=== PATIENT | male | born 1960 | race Caucasian/White ===

== ENCOUNTER 2020-10-05 08:55 | Outpatient (RCR) | payer BC ==
[~2020-10-05] VITALS: Ht 182 cm; Wt 107.0 kg
[2020-10-05] MEDS ORDERED: RIVA20TA PO (09:04)
[2020-10-05] MEDS ORDERED: DILT180T9 PO (09:04)
[2020-10-05] MEDS ORDERED: NEBI5TAB8 PO (09:04)
[2020-10-05 09:08] VITALS: BP 137/85
--- NOTE | 2020-10-05 09:49 | Diagnostic Imaging Report ---
INDICATION: Preop Two views of the chest show normal heart size and vascularity. Wireless heart monitor is present. The lungs are clear. There is no effusion or pneumothorax. There is no bony abnormality. IMPRESSION: No acute abnormality is seen. Dictated by: Dictated on workstation # [id number]
[2020-10-05 09:57] LABS: BASOPHILS % (AUTO) 0 % (0-10); EOSINOPHILS % (AUTO) 0 % (0-10); HEMATOCRIT 44 % (40-54); HEMOGLOBIN 15.1 g/dL (13.3-17.7); LYMPHOCYTES # (AUTO) 1.1 10^3/uL (1.0-4.0); LYMPHOCYTES % (AUTO) 16 % (12-44); MEAN CORPUSCULAR HEMOGLOBIN 30 pg (25-34); MEAN CORPUSCULAR HGB CONC 34 g/dL (32-36); MEAN CORPUSCULAR VOLUME 87 fL (80-99); MEAN PLATELET VOLUME 10.7 fL (9.0-12.2); MONOCYTES # (AUTO) 0.5 10^3/uL (0.0-1.0); MONOCYTES % (AUTO) 7 % (0-12); NEUTROPHILS # (AUTO) 5.4 10^3/uL (1.8-7.8); NEUTROPHILS % (AUTO) 77 % (42-75); PLATELET COUNT 269 10^3/uL (130-400)
[2020-10-05 10:10] LABS: BUN/CREATININE RATIO 22; CALCIUM 9.2 MG/DL (8.5-10.1); CARBON DIOXIDE 23 MMOL/L (21-32); CHLORIDE 105 MMOL/L (98-107); CREATININE SERUM 0.79 MG/DL (0.60-1.30); GFR ESTIMATED > 60; GLUCOSE 111 MG/DL (70-105); POTASSIUM 3.8 MMOL/L (3.6-5.0); SODIUM 139 MMOL/L (135-145)
== END 2020-10-05 10:17 | disposition home or self-care (01) ==
LOC: PREOP 08:55
PROVIDERS: ATTEND Otolaryngology Otolaryngology/Facial Plastic Surgery
DX: Z01.812 Encounter for preprocedural laboratory examination (principal); J32.9 Chronic sinusitis, unspecified; J34.2 Deviated nasal septum; J34.3 Hypertrophy of nasal turbinates
CPT/HCPCS: 36415; 71046; 80048; 85025; 87081

== ENCOUNTER 2020-10-07 06:12 | Day surgery (SDC) | payer BC ==
[2020-10-07] VITALS (10 sets, daily range): BP systolic 132–169; BP diastolic 84–100
[~2020-10-07] VITALS: Ht 182 cm; Wt 107.0 kg
[~2020-10-07 06:12] MED LIST: DILT180T9 PO; NEBI5TAB8 PO; RIVA20TA PO
[2020-10-07] MEDS ORDERED: AMPICILLIN/SULBACTAM INJECTION 1.5 GM in NS (IVPB) 100 ML IV ONE (06:15)
[2020-10-07] MEDS ORDERED: HYDROCORTISONE 100 MG/2 ML (Solu-CORTEF) VIAL IV ONE (06:15)
[2020-10-07] MEDS: LACTATED RINGERS 1,000 ML IV PRN ×2 (06:38→08:12)
[2020-10-07] MEDS ORDERED: PHENYLEPHRINE 0.5% NASAL SPR (NEO-SYNEPHRINE) REG ONE (06:52)
[2020-10-07] MEDS ORDERED: COCAINE HCL 4% 2 ML SYR ONE (06:52)
[2020-10-07] MEDS ORDERED: fentaNYL INJECTION 100 MCG/2 ML AMP ONE (06:52)
[2020-10-07] MEDS ORDERED: BSS 15 ML ONE (06:52)
[2020-10-07] MEDS ORDERED: MIDAZOLAM 2 MG/2 ML (VERSED) VIAL ONE (06:52)
[2020-10-07] MEDS ORDERED: LIDOCAINE/EPI 1%-1:100,000 (XYLOCAINE) 20ML ONE (06:53)
--- NOTE | 2020-10-07 07:07 | Progress Note-Pre Operative ---
Pre-Operative Progress Note H&P Reviewed The H&P was reviewed, patient examined and no changes noted. Date Seen by Provider: Oct 07, 2020 Time Seen by Provider: 06:30 Date H&P Reviewed: Oct 07, 2020 Time H&P Reviewed: 06:30 Pre-Operative Diagnosis: Bilat ChronicSinusitis, Deviated Nasal Septum, Bilat Hyper of Inf Turbs CATRACHITA MCARTHUR MD Oct 07, 2020 07:07
[2020-10-07] MEDS ORDERED: LIDOCAINE PF 2% 5 ML (XYLOCAINE) VIAL ONE (08:11)
[2020-10-07] MEDS ORDERED: ROCURONIUM 10 MG/ML 5 ML SYRINGE IV ONE (08:11)
[2020-10-07] MEDS ORDERED: GLYCOPYRROLATE 0.2 MG/ML (ROBINUL) 2 ML VIAL ONE (08:11)
[2020-10-07] MEDS ORDERED: ONDANSETRON 4 MG/2 ML (SDV) Z0FRAN ONE (08:11)
[2020-10-07] MEDS ORDERED: PROPOFOL IV ONE (08:11)
[2020-10-07] MEDS ORDERED: NEOSTIGMINE 3 MG/3 ML VIAL ONE (08:11)
[2020-10-07] MEDS ORDERED: proPOfol 200 MG/20 ML (DIPRIVAN) VIAL IV ONE ×2 (08:11→09:07)
[2020-10-07] MEDS ORDERED: PROPOFOL INJECTION 50 ML IV ONE (08:19)
[2020-10-07] MEDS ORDERED: HYDROmorphone 2 MG/ML VIAL (DILAUDID) ONE (08:22)
--- NOTE | 2020-10-07 08:52 | Progress Note-Post Operative ---
Post-Operative Progess Note Surgeon (s)/Registered Respiratory Technician (s) Surgeon CATRACHITA MCARTHUR MD Registered Respiratory Technician n/a Pre-Operative Diagnosis Bilat ChronicSinusitis, Deviated Nasal Septum, Bilat Hyper of Inf Turbs Post-Operative Diagnosis same Post-Op Procedure Note Date of Procedure: Oct 07, 2020 Name of Procedure Performed: Bilat ESs, NAsal Septoplasty, Bilat Red of Inf Turbs Description & Findings Description and Findings: n/a Anesthesia Type get Estimated Blood Loss minimal Packing none. Specimen(s) collected/removed bilat sinus disease,septum CATRACHITA MCARTHUR MD Oct 07, 2020 08:52
[2020-10-07] MEDS ORDERED: HYDROcodone/APAP 5 MG/325 MG (LORTAB) TAB PO PRN (09:00)
[2020-10-07] MEDS ORDERED: predniSONE 20 MG TAB PO ONE (09:00)
[2020-10-07] MEDS ORDERED: PROMETHAZINE INJ 25 MG/ML (PHENERGAN) AMP IVP PRN (09:00)
[2020-10-07] MEDS ORDERED: ACETAMINOPHEN 325 MG TABLET PO PRN (09:00)
[2020-10-07] MEDS ORDERED: D5 1/2 NS W/KCL 20 MEQ/L 1,000 ML IV SCH (09:00)
[2020-10-07] MEDS ORDERED: HYDROmorphone 2 MG/ML VIAL (DILAUDID) IV ONE (09:15)
[2020-10-07] MEDS ORDERED: ONDANSETRON 4 MG/2 ML (SDV) Z0FRAN IVP PRN (09:15)
[2020-10-07] MEDS ORDERED: morphine INJ 10 MG/ML 1ML (SYR OR VIAL) IVP ONE (09:15)
[2020-10-07] MEDS ORDERED: AMOX-355 PO (10:03)
[2020-10-07] MEDS ORDERED: PRD20T PO (10:03)
[2020-10-07] MEDS ORDERED: ACHD5005 PO (10:03)
--- NOTE | 2020-10-07 10:39 | Anesthesia-General Post-Op ---
General Patient Condition Mental Status/LOC: Same as Preop Cardiovascular: Satisfactory Nausea/Vomiting: Absent Respiratory: Satisfactory Pain: Controlled Complications: Absent Post Op Complications Complications None Follow Up Care/Instructions Patient Instructions None needed. Anesthesia/Patient Condition Patient Condition Patient is doing well, no complaints, stable vital signs, no apparent adverse anesthesia problems. CONNIE VERA DO Oct 07, 2020 10:39
== END 2020-10-07 11:00 | disposition home or self-care (01) ==
LOC: SDC 06:12
PROVIDERS: ATTEND Otolaryngology Otolaryngology/Facial Plastic Surgery
DX: J32.9 Chronic sinusitis, unspecified (principal); J34.2 Deviated nasal septum; J34.3 Hypertrophy of nasal turbinates; R09.81 Nasal congestion; I48.91 Unspecified atrial fibrillation; G47.33 Obstructive sleep apnea (adult) (pediatric); Z79.899 Other long term (current) drug therapy; Z85.46 Personal history of malignant neoplasm of prostate
CPT/HCPCS: 87635; 88305

== ENCOUNTER 2020-10-20 01:16 | Day surgery (SDC) | payer BC ==
[~2020-10-20] VITALS: Ht 182 cm; Wt 106.0 kg
[2020-10-20] VITALS (11 sets, daily range): BP systolic 130–157; BP diastolic 77–96
[~2020-10-20 01:16] MED LIST changes: +ACHD5005 PO; +AMOX-355 PO; +PRD20T PO
--- NOTE | 2020-10-20 01:20 | NUR ---
DR MCARTHUR HERE SEEING PT.
[2020-10-20] MEDS ORDERED: PHENYLEPHRINE 0.25% NASAL SPR (NEO-SYNEPHRINE) 15 ML NS ONE (01:32)
[2020-10-20] MEDS ORDERED: PHENYLEPHRINE 0.25% NASAL SPR (NEO-SYNEPHRINE) 15 ML NS STA (01:35)
--- NOTE | 2020-10-20 02:15 | Progress Note ---
Standard Progress Note Progress Notes/Assess & Plan Date Seen by a Provider: Oct 20, 2020 Time Seen by a Provider: 01:45 Progress/Assessment & Plan ENT-Patsy History/Physical cc: Persistent Right Nosebleed HPI: Patient presented on transfer from [facility]. History of onset of bleeding from right side of nose while out training a mule. Started around 430pm and has been persistent. Attempts at packing have failed. HIstory of sinus surgery 13 days ago. Had done well up until this time when he blew his nose and it began to bleed. Unable to control. Hgb 14.8 at 2320 in [place] Hasnt eaten anything since lunch. Meds: Patient is on xarelto Exam: Nose-clot and bright red blood comng from the right side of the nose. This was sucitoned out. Bleeding looks like it is coming from low in the nose on the right. Ethmoid region wsa clear. [place] pack ws palced and afrin nasal spray used to inflate it. Despite this and time he still had bleeding more anteriorly than posteriorly OP-small amount of blood seen in the orpharynx IMP: Persistent Right Posterior Epistaxis Rec: 1. Patient has had persistent bleeding. Narayan lgo to the OR for EUA and repair endoscopically. Risk and benefits discussed. Narayan proceed once OR crew available. Consent signed. Will need to stay post-operatively at least thru lunch on depending on how he does. Off xarelto until at least saturday. Final Diagnosis Right Posterior Epistaxis CATRACHITA MCARTHUR MD Oct 20, 2020 02:15
--- NOTE | 2020-10-20 02:18 | Progress Note-Pre Operative ---
Pre-Operative Progress Note H&P Reviewed The H&P was reviewed, patient examined and no changes noted. Date Seen by Provider: Oct 20, 2020 Time Seen by Provider: 02:00 Date H&P Reviewed: Oct 20, 2020 Time H&P Reviewed: 02:00 Pre-Operative Diagnosis: Right Posterior Epistaxis CATRACHITA MCARTHUR MD Oct 20, 2020 02:18
[2020-10-20] MEDS ORDERED: MIDAZOLAM 2 MG/2 ML (VERSED) VIAL ONE (02:24)
[2020-10-20] MEDS ORDERED: proPOfol 200 MG/20 ML (DIPRIVAN) VIAL IV ONE (02:24)
[2020-10-20] MEDS ORDERED: SEVOFLURANE (ULTANE) 15 ML INHAL SOLN ONE (02:24)
[2020-10-20] MEDS ORDERED: SUCCINYLCHOLINE INJ 100 MG/5 ML SYR/VIAL ONE (02:24)
[2020-10-20] MEDS ORDERED: fentaNYL INJECTION 100 MCG/2 ML AMP ONE (02:24)
[2020-10-20] MEDS ORDERED: ROCURONIUM 10 MG/ML 5 ML SYRINGE IV ONE ×2 (02:24→03:29)
[2020-10-20] MEDS ORDERED: ONDANSETRON 4 MG/2 ML (SDV) Z0FRAN ONE (02:24)
[2020-10-20] MEDS ORDERED: LIDOCAINE PF 2% 5 ML (XYLOCAINE) VIAL ONE (02:24)
[2020-10-20] MEDS ORDERED: MUPIROCIN 2% OINT 22 GM (BACTROBAN) TUBE ONE (02:35)
[2020-10-20] MEDS ORDERED: COCAINE HCL 4% 2 ML SYR ONE (02:35)
[2020-10-20] MEDS ORDERED: PHENYLEPHRINE 0.5% NASAL SPR (NEO-SYNEPHRINE) REG ONE (02:35)
[2020-10-20] MEDS ORDERED: LIDOCAINE/EPI 1%-1:100,000 (XYLOCAINE) 20ML ONE (02:35)
[2020-10-20] MEDS ORDERED: LACTATED RINGERS 1,000 ML IV PRN (03:00)
[2020-10-20] MEDS ORDERED: ceFAZolin INJECTION 1,000 MG ONE (03:26)
[2020-10-20] MEDS ORDERED: WATER (STERILE) FOR INJECTION 20 ML ONE (03:29)
[2020-10-20] MEDS ORDERED: PROPOFOL INJECTION 100 ML IV ONE (03:29)
[2020-10-20] MEDS ORDERED: SUGAMMADEX 500 MG/5 ML VIAL (BRIDION) IV ONE (03:55)
--- NOTE | 2020-10-20 03:55 | Progress Note-Post Operative ---
Post-Operative Progess Note Surgeon (s)/Data Transcriber (s) Surgeon CATRACHITA MCARTHUR MD Data Transcriber n/a Pre-Operative Diagnosis Right Posterior Epistaxis Post-Operative Diagnosis same Post-Op Procedure Note Date of Procedure: Oct 20, 2020 Name of Procedure Performed: Endoscopic Repair of RightPosterior Epistaxis Description & Findings Description and Findings: n/a Anesthesia Type get Estimated Blood Loss minimal Packing surgicel right side of nose along with dnp Specimen(s) collected/removed none CATRACHITA MCARTHUR MD Oct 20, 2020 03:55
[2020-10-20] MEDS ORDERED: HYDROcodone/APAP 5 MG/325 MG (LORTAB) TAB PO PRN ×2 (04:00)
[2020-10-20] MEDS ORDERED: ACETAMINOPHEN 500 MG TAB (TYLENOL) PO PRN (04:00)
[2020-10-20] MEDS ORDERED: PHENYLEPHRINE 0.5% NASAL SPR (NEO-SYNEPHRINE) REG PRN (04:00)
[2020-10-20] MEDS ORDERED: D5 1/2 NS W/KCL 20 MEQ/L 1,000 ML IV SCH (04:00)
[2020-10-20] MEDS ORDERED: HYDROmorphone 2 MG/ML VIAL (DILAUDID) IV ONE (04:15)
[2020-10-20] MEDS ORDERED: ONDANSETRON 4 MG/2 ML (SDV) Z0FRAN IVP PRN (04:15)
--- NOTE | 2020-10-20 04:47 | Anesthesia-General Post-Op ---
General Patient Condition Mental Status/LOC: Same as Preop Cardiovascular: Satisfactory Nausea/Vomiting: Absent Respiratory: Satisfactory Pain: Controlled Complications: Absent Post Op Complications Complications None Follow Up Care/Instructions Patient Instructions None needed. Anesthesia/Patient Condition Patient Condition Patient is doing well, no complaints, stable vital signs, no apparent adverse anesthesia problems. No complications reported per nursing. D/C home per [facility] [place]: Yes PARAM DELCID CRNA Oct 20, 2020 04:47
--- NOTE | 2020-10-20 11:00 | NUR ---
Dr Garner here to assess patient at this time. Requests this RN to place discharge orders and for patient to be discharged at 1300 today.
--- NOTE | 2020-10-20 13:31 | NUR ---
BOURGEOISLUNA demonstrates understanding of discharge instructions and accurately returns instructions upon questioning. Copy of Post-Discharge Instructions and Medication Discharge Instructions given to patient. LUNA BOURGEOIS is able to manage continuing needs after discharge. Patients belongings returned to patient. Skin dry and intact; no breakdown noted. Patient discharged from [facility]- on 09/20/20 at 1330. CHRISTELLELUNA left floor via wheelchair, accompanied by staff.
== END 2020-10-20 13:34 ==
LOC: EDUNIT# 01:16 → ER 01:18 → SDC 02:15 → 4TH 05:00 → ER 13:34
PROVIDERS: ATTEND Otolaryngology Otolaryngology/Facial Plastic Surgery
DX: R04.0 Epistaxis (principal)
CPT/HCPCS: 30901